=== PATIENT | female | born 1985 | race Two or more races ===

== ENCOUNTER 2017-06-09 15:52 | Emergency (ER) | payer SELFPAY ==
[2017-06-09 17:06] VITALS: BP 112/65; PULSE 86; TEMP 98; BMI 24.7
--- NOTE | 2017-06-09 17:12 | PDOC ---
Rapid Medical Evaluation Chief Complaint: Vaginal Bleeding Time Seen by Provider: 06/09/17 17:03 Medical Evaluation: Allergies Allergy/AdvReac Type Severity Reaction Status Date / Time No Known Allergies Allergy Verified 06/09/17 17:02 06/09/17 17:12 came for eval of spotting x 1 week. States is scant , no fevers. no abd pain. CBC, BHcG, Type and screen Waits ER eval. 06/09/17 17:14
[2017-06-09 17:51] LABS: BASO % 0.4 % (0-2.0); EOS % 0.8 % (0-4.5); HEMATOCRIT 35.1 % (32.4-45.2); HEMOGLOBIN 11.7 GM/dL (10.7-15.3); LYMPH % 22.8 % (8-40); MCHC 33.2 g/dl (32.0-36.0); MEAN CELL VOLUME 72.1 fl (80-96); MEAN PLT VOLUME 8.7 fl (7.5-11.1); MONO % 6.8 % (3.8-10.2); NEUT % 69.2 % (42.8-82.8); PLATELET COUNT 197 K/MM3 (134-434); RBC 4.87 M/mm3 (3.60-5.2); RDW 16.5 % (11.6-15.6); WHITE BLOOD COUNT 6.9 K/mm3 (4.0-10.0)
[2017-06-09] MEDS ORDERED: RHO(D) IMMUNE GLOBULIN 1,500 UNIT DISP.SYRIN IM ONE (20:52)
--- NOTE | 2017-06-09 21:21 | PDOC ---
History of Present Illness <Suzi Cruz La - Last Filed: 06/09/17 22:22> - General History Source: Patient Exam Limitations: No Limitations - History of Present Illness Initial Comments: 06/09/17 21:24 The patient is a 32 year old female who is , who is s/p 2/2 gestational diabetes, approximately 9 weeks by LMP who presents to the ED complaining of approximately 5 days of scant, continuous vaginal bleeding with associated nausea. The patient denies abdominal pain, vomiting, or diarrhea. She denies dysuria, frequency, or urgency. She denies fever or chills. She denies chest pain, lightheadedness or shortness of breath. OBGYN: Dr. Aguirre <Rebecca Albrecht - Last Filed: 06/10/17 00:50> - General Chief Complaint: Vaginal Bleeding Stated Complaint: SPOTTING (9 WKS ) Time Seen by Provider: 06/09/17 17:03 Past History - Past Medical History Asthma: No Cancer: No Cardiac Disorders: No COPD: No Diabetes: No HTN: No Seizures: No Thyroid Disease: No - Suicide/Smoking/Psychosocial Hx Smoking History: Never smoked Have you smoked in the past 12 months: No Information on smoking cessation initiated: No Hx Alcohol Use: No Drug/Substance Use Hx: No Substance Use Type: None Hx Substance Use Treatment: No <AnthonyIancorazon Tovar - Last Filed: 06/09/17 22:22> <Rebecca Albrecht - Last Filed: 06/10/17 00:50> - Past Medical History Allergies/Adverse Reactions: Allergies Allergy/AdvReac Type Severity Reaction Status Date / Time No Known Allergies Allergy Verified 06/09/17 17:02 Home Medications: Ambulatory Orders Acetaminophen [Tylenol .Regular Strength -] 650 mg PO Q3H PRN #0 tablet Vitamins (Sjr) - 1 tab PO DAILY tablet 06/06/15 Review of Systems - Review of Systems Able to Perform ROS?: Yes Comments:: 06/09/17 21:27 GENERAL/CONSTITUTIONAL: No fever or chills. No weakness. HEAD, EYES, EARS, NOSE AND THROAT: No change in vision. No ear pain or discharge. No sore throat. CARDIOVASCULAR: No chest pain or shortness of breath. RESPIRATORY: No cough, wheezing, or hemoptysis. GASTROINTESTINAL: No abdominal pain. No nausea, vomiting, diarrhea or constipation. GENITOURINARY: +Vaginal bleeding x 5 days. No dysuria, urgency, frequency. MUSCULOSKELETAL: No joint or muscle swelling or pain. No neck or back pain. SKIN: No rash NEUROLOGIC: No headache, vertigo, loss of consciousness, or change in strength/ sensation. ENDOCRINE: No increased thirst. No abnormal weight change. HEMATOLOGIC/LYMPHATIC: No anemia, easy bleeding, or history of blood clots. ALLERGIC/IMMUNOLOGIC: No hives or skin allergy. <Rebecca Albrecht - Last Filed: 06/10/17 00:50> *Physical Exam - Vital Signs Last Vital Signs Temp Pulse Resp BP Pulse Ox 98.0 F 86 18 112/65 100 06/09/17 17:02 06/09/17 17:02 06/09/17 17:02 06/09/17 17:02 06/09/17 17:02 <Suzi Cruz - Last Filed: 06/09/17 22:22> - Vital Signs Last Vital Signs Temp Pulse Resp BP Pulse Ox 98.0 F 86 18 112/65 100 06/09/17 17:02 06/09/17 17:02 06/09/17 17:02 06/09/17 17:02 06/09/17 17:02 - Physical Exam Comments: 06/09/17 21:28 GENERAL: Awake, alert, and fully oriented, in no acute distress HEAD: No signs of trauma EYES: PERRLA, EOMI, sclera anicteric, conjunctiva clear ENT: Auricles normal inspection, nares patent. Moist mucosa NECK: Normal ROM, supple, no JVD, or masses LUNGS: Breath sounds equal, clear to auscultation bilaterally. No wheezes, and no crackles HEART: Regular rate and rhythm, normal S1 and S2, no murmurs, rubs or gallops ABDOMEN: Soft, nontender, normoactive bowel sounds. No guarding, no rebound. No masses EXTREMITIES: Normal range of motion, no edema. No clubbing or cyanosis. No cords, erythema, or tenderness NEUROLOGICAL: Alert and oriented x 3. Moves all extremities. Face is symmetric. SKIN: Warm, Dry, normal turgor, no rashes or lesions noted. Pelvic exam deferred secondary to scant bleeding. <Rebecca Albrecht - Last Filed: 06/10/17 00:50> ED Treatment Course - LABORATORY CBC & Chemistry Diagram: 06/09/17 17:38 - ADDITIONAL ORDERS Additional order review: Laboratory Results 06/09/17 06/09/17 17:38 17:38 Beta HCG, Quant [id number] Blood Type O NEGATIVE Antibody Screen Negative 06/09/17 17:38 RBC 4.87 D MCV 72.1 L MCHC 33.2 RDW 16.5 H D MPV 8.7 Neutrophils % 69.2 Lymphocytes % 22.8 Monocytes % 6.8 Eosinophils % 0.8 D Basophils % 0.4 D - RADIOLOGY Radiology Studies Ordered: Category Date Time Status <14WKS US [US] Stat Ultrasound 06/09/17 20:50 Taken <Suzi Cruz - Last Filed: 06/09/17 22:22> - LABORATORY CBC & Chemistry Diagram: 06/09/17 17:38 - ADDITIONAL ORDERS Additional order review: Laboratory Results 06/09/17 06/09/17 17:38 17:38 Beta HCG, Quant [id number] Blood Type O NEGATIVE Antibody Screen Negative 06/09/17 17:38 RBC 4.87 D MCV 72.1 L MCHC 33.2 RDW 16.5 H D MPV 8.7 Neutrophils % 69.2 Lymphocytes % 22.8 Monocytes % 6.8 Eosinophils % 0.8 D Basophils % 0.4 D <Rebecca Albrecht - Last Filed: 06/10/17 00:50> Medical Decision Making - Medical Decision Making 06/09/17 21:33 OB US, read and reviewed by Dr. Aguilar. Impression: Single, live intrauterine of 9 weeks 6 days gestational age. <Rebecca Albrecht - Last Filed: 06/10/17 00:50> *DC/Admit/Observation/Transfer <Suzi Cruz - Last Filed: 06/09/17 22:22> - Attestations Scribe Attestion: 06/09/17 21:30 Documentation prepared by Rebecca Albrecht, acting as medical anthropologist for Suzi Cruz MD. <Rebecca Albrecht - Last Filed: 06/10/17 00:50> Diagnosis at time of Disposition: Threatened - Discharge Dispostion Disposition: HOME Condition at time of disposition: Stable - Patient Instructions Printed Discharge Instructions: DI for Threatened Additional Instructions: please follow up with your restaurant attendant and take your vitamins
== END 2017-06-09 22:38 | disposition home or self-care (01) ==
LOC: JER 15:52
PROC: 3E0234Z Introduction of Serum, Toxoid and Vaccine into Muscle, Percutaneous Approach (ICD-10-PCS; principal; 2017-06-09)
DX: O26.891 Other specified pregnancy related conditions, first trimester (principal); O20.0 Threatened abortion; Z3A.09 9 weeks gestation of pregnancy; O36.0910 Maternal care for other rhesus isoimmunization, first trimester, not applicable or unspecified
CPT/HCPCS: 36415; 76801-TC; 84702; 85025; 86850; 86900; 86901; 86999; 99282-25; J1561

== ENCOUNTER 2018-01-07 11:17 | Inpatient (IN) | payer OTHER ==
[2018-01-07] MEDS: DEXTROSE 5%-LACTATED RINGERS 1,000 ML IV SCH (23:50)
[2018-01-08 00:37] LABS: BASO % 0.1 % (0-2.0); EOS % 0.1 % (0-4.5); HEMATOCRIT 34.1 % (32.4-45.2); HEMOGLOBIN 10.6 GM/dL (10.7-15.3); LYMPH % 21.3 % (8-40); MCH 21.2 pg (25.7-33.7); MCHC 31.2 g/dl (32.0-36.0); MEAN CELL VOLUME 67.9 fl (80-96); MONO % 5.3 % (3.8-10.2); NEUT % 73.2 % (42.8-82.8); RBC 5.02 M/mm3 (3.60-5.2); RDW 20.7 % (11.6-15.6); WHITE BLOOD COUNT 6.7 K/mm3 (4.0-10.0)
[2018-01-08 00:42] VITALS: BMI 30.2
[2018-01-08 00:49] LABS: INR 0.87 (0.83-1.09); PROTHROMBIN TIME (PATIENT) 10.3 SEC (9.7-13.0)
[2018-01-08 00:51] LABS: ACTIVATED PTT 29.2 SECONDS (25.2-36.5)
[2018-01-08 00:55] LABS: ANION GAP 10 MMOL/L (8-16); BLOOD UREA NITROGEN 15 mg/dL (7-18); CALCIUM 8.7 mg/dL (8.5-10.1); CHLORIDE 105 mmol/L (98-107); CO2 23 mmol/L (21-32); CREATININE 0.7 mg/dL (0.55-1.3); GLUCOSE,RANDOM 110 mg/dL (74-106); POTASSIUM 4.2 mmol/L (3.5-5.1); SODIUM 138 mmol/L (136-145)
--- NOTE | 2018-01-08 01:01 | PN ---
Progress Note, Labor Vaginal Exam #1 Labor Exam Date: 01/08/18 Labor Exam Time: 01:00 Heart Rate (range): Cat 1 Dilatation: 6 Effacement (%): 80 Amniotic Membrane Status: Ruptured Presentation: Vertex/Position Station: -3 (Cat 1 tracing AROM, clears Discussed epidural for pain Anticipate . Carmelita Saini MD)
[2018-01-08] MEDS ORDERED: OXYTOCIN 20 UNITS in 0.9% NS 20 UNIT/1,000 ML INFUS.BAG IV ONE (01:13)
[2018-01-08] MEDS ORDERED: LIDOCAINE HCL 1% PRESERVATIVE FREE - 30ML VIAL ONE (01:13)
[2018-01-08 01:45] LABS: MEAN PLT VOLUME 9.6 fl (7.5-11.1)
[2018-01-08 01:46] LABS: PLATELET COUNT 133 K/MM3 (134-434)
[2018-01-08] MEDS ORDERED: CITRIC ACID/SODIUM CITRATE 30 ML UNIT-DOSE CUP PO ONE (03:30)
[2018-01-08] MEDS: ELECTROLYTE-148 SOLN 1,000 ML IV SCH (05:50)
[2018-01-08] MEDS: OXYTOCIN 20 UNITS in 0.9% NS 20 UNIT/1,000 ML INFUS.BAG IV SCH (06:10)
--- NOTE | 2018-01-08 06:30 | PN ---
Delivery - Delivery Vaginal Delivery: Spontaneous Type of Anesthesia: None Episiotomy/Laceration: None EBL (cc): 400 Delivery, Single - Stages of Labor Date of Delivery: 01/08/18 Time of Delivery: 06:07 Date Placenta Delivered: 01/08/18 Time Placenta Delivered: 06:10 Placenta: Yes: Spontaneous - Condition of Infant Gender: Male Position: Left, OA - Feeding Plan Initial Plan: Exclusive throughout hospitalization Remarks - Remarks Remarks: of VFMI from FEDE over intact perineum. 40wk gestation. No anesthesia. Spontaneous delivery of anterior shoulder. Infant placed on maternal abdomen. Cord clamped and cut. Infant handed off. Spontaneous delivery of intact placenta with 3VC. Fundus firm, but several large gushes of fluid with fundal massage. Pitocin running. 0.2mg of Methergine IM given. Superficial perineal abrasion, not bleeding or repaired. Weight pending. Apgars 9/9. Mother and baby doing well.
[2018-01-08] MEDS ORDERED: BENZOCAINE 20% 57 GM BOTTLE TP PRN (06:33)
[2018-01-08] MEDS ORDERED: METHYLERGONOVINE MALEATE 0.2 MG/1 ML AMP IM PRN (06:33)
[2018-01-08] MEDS ORDERED: BENZOCAINE 28 GM HEMORRHOIDAL OINTMENT TP PRN (06:33)
[2018-01-08] MEDS ORDERED: WITCH HAZEL 50% (TUCKS) 40 PAD/JAR PAD TP PRN (06:33)
--- NOTE | 2018-01-08 06:33 | HP ---
Past Medical History - Admission Chief Complaint: Uterine contractions History of Present Illness: 32yo @ 39.6wks here with uterine contractions. No VB/LOF. +FM Preg c/b grand multiparity, h/o C/S x 1 followed by x 1 - Past Medical History Gastrointestinal: Yes: Constipation ...: 8 ...Para: 5 ...Term: 5 ...: 0 ...Spon : 2 ...Induced : 0 ...Multiple Gestation: 0 ...LMP: 04/03/17 ... Weeks Gestation by Dates: 39.6 ...EDC by Dates: 01/08/18 ...EDC by Sono: 01/08/18 Heme/Onc: Yes: Anemia (rx po iron & pnv) Infectious Disease: Yes: STD's (h/o non HPV pos) Additional Medical History: pt is Jehov's witness - Past Surgical History Past Surgical History: Yes: Hx Myomectomy: No Hx Transabdominal Cerclage: No - Smoking History Smoking history: Never smoked Have you smoked in the past 12 months: No - Alcohol/Substance Use Hx Alcohol Use: No History of Substance Use: reports: None - Social History History of Recent Travel: No Home Medications - Allergies Allergies/Adverse Reactions: Allergies Allergy/AdvReac Type Severity Reaction Status Date / Time No Known Allergies Allergy Verified 01/08/18 00:22 - Home Medications Home Medications: Ambulatory Orders RX: Vitamins (Sjr) - 1 tab PO DAILY tablet 06/06/15 Ferrous Sulfate [Iron] 325 mg PO DAILY 01/08/18 Review of Systems - Review of Systems Cardiovascular: denies: No Symptoms, Chest Pain, Edema, Palpitations, Shortness of Breath, Other Respiratory: denies: No Symptoms, Cough, Exercise Intolerance, Hemoptysis, Orthopnea, PND, Snoring, SOB, SOB on Exertion, Wheezing, Other Gastrointestinal: denies: No Symptoms, Abdominal Pain, Bloating, Constipation, Diarrhea, Dysphagia, Indigestion, Melena, Nausea, Rectal Bleeding, Vomiting, Vomiting Blood, Other Physical Exam - Maternity Vital Signs: Vital Signs Temperature 98.4 F 01/08/18 05:00 Pulse Rate 79 01/08/18 05:00 Respiratory Rate 19 01/08/18 05:00 Blood Pressure 138/76 01/08/18 05:00 O2 Sat by Pulse Oximetry (%) - Abdominal Exam/OB Number of Fetuses: Single Presentation: Vertex Contractions: Yes Regularity: Regular Intensity: Moderate Monitor Mode: External Category: I Accelerations: Uniform Decelerations: None - Vaginal Exam/OB Dilatation (cm): 4 Effacement (%): 100 Amniotic Membrane Status: Intact Presentation: Vertex/Position Station: -2 - Physical Exam Edema: No - Labs Lab Results: CBC, BMP 01/08/18 00:05 01/08/18 00:05 Assessment/Plan Admit to L&D NPO, IVFs GBS neg Cat 1 tracing Counseled previously regarding risk of TOLAC including maternal/ morbidity and mortality. Consents signed. Anticipate Carmelita Saini MD
[2018-01-08] MEDS: FERROUS SO4 325 MG TABLET (FP) PO SCH ×3 (08:00→17:11)
[2018-01-08] MEDS: PRENATAL VITAMINS W/ FOLIC ACID TABLET (FP) PO SCH (10:01)
[2018-01-08] MEDS: IBUPROFEN 600 MG TABLET (FP) PO PRN ×3 (10:07→21:19)
[2018-01-08] MEDS: ACETAMINOPHEN 325 MG TABLET (FP) PO PRN ×3 (10:08→21:20)
[2018-01-09] MEDS: ACETAMINOPHEN 325 MG TABLET (FP) PO PRN (06:30)
[2018-01-09] MEDS: IBUPROFEN 600 MG TABLET (FP) PO PRN (06:30)
[2018-01-09 07:54] LABS: BASO % 0.2 % (0-2.0); EOS % 0.3 % (0-4.5); HEMOGLOBIN 9.8 GM/dL (10.7-15.3); MCHC 30.5 g/dl (32.0-36.0); MEAN CELL VOLUME 68.7 fl (80-96); MEAN PLT VOLUME 10.3 fl (7.5-11.1); MONO % 5.8 % (3.8-10.2); NEUT % 59.7 % (42.8-82.8); PLATELET COUNT 131 K/MM3 (134-434); RBC 4.65 M/mm3 (3.60-5.2); RDW 20.6 % (11.6-15.6); WHITE BLOOD COUNT 9.6 K/mm3 (4.0-10.0)
[2018-01-09] MEDS: FERROUS SO4 325 MG TABLET (FP) PO SCH ×3 (08:00→17:03)
[2018-01-09] MEDS: PRENATAL VITAMINS W/ FOLIC ACID TABLET (FP) PO SCH (09:08)
--- NOTE | 2018-01-09 09:08 | PN ---
Progress Note (short form) - Note Progress Note: ppd 1 s/p , no c/o , no excess vaginal bleeding CBC, BMP 01/09/18 07:00 01/08/18 00:05 Last Vital Signs Temp Pulse Resp BP Pulse Ox 97.7 F 80 18 116/71 100 01/09/18 08:18 01/09/18 08:18 01/09/18 08:18 01/09/18 08:18 01/08/18 07:30 abdomen soft, non tennnder , uterus firm lochia mild no calf tenderness plan ambulate, plan for d/c home in am
[2018-01-09] MEDS ORDERED: DIPHTH,PERTUSS(ACELL),TET 0.5 ML DISP.SYRIN IM ONE (10:00)
[2018-01-09] MEDS: DEXTROSE 5%-LACTATED RINGERS 1,000 ML IV SCH (11:43)
[2018-01-09] MEDS: ELECTROLYTE-148 SOLN 1,000 ML IV SCH (11:43)
[2018-01-09] MEDS: OXYTOCIN 20 UNITS in 0.9% NS 20 UNIT/1,000 ML INFUS.BAG IV SCH (11:43)
[2018-01-09] MEDS ORDERED: SENNOSIDES/DOCUSATE COMBO (SENNA PLUS) TABLET (UD) PO PRN (22:00)
[2018-01-10] MEDS: ACETAMINOPHEN 325 MG TABLET (FP) PO PRN (03:16)
[2018-01-10] MEDS: IBUPROFEN 600 MG TABLET (FP) PO PRN (03:17)
--- NOTE | 2018-01-10 08:37 | DS ---
Physical Exam-[employer] Vital Signs: Vital Signs Temperature 98.3 F 01/09/18 21:05 Pulse Rate 80 01/09/18 21:05 Respiratory Rate 20 01/09/18 21:05 Blood Pressure 118/64 01/09/18 21:05 O2 Sat by Pulse Oximetry (%) 100 01/08/18 07:30 Constitutional: Yes: Well Nourished Eyes: Yes: Conjunctiva Clear HENT: Yes: Atraumatic Neck: Yes: Supple Cardiovascular: Yes: Regular Rate and Rhythm Respiratory: Yes: Regular Gastrointestinal: Yes: Normal Bowel Sounds ...Rectal Exam: Yes: WNL Renal/: Yes: WNL Pelvis: Yes: WNL External Genitalia: Yes: Normal Vaginal Exam: Yes: Normal Cervix: Yes: Normal Uterus: Yes: Firm ....Post : Yes: Uterus firm, Moderate lochia serosa Neurological: Yes: Alert, Oriented ...Motor Strength: WNL Psychiatric: Yes: Alert, Oriented Labs: CBC, BMP 01/09/18 07:00 01/08/18 00:05 Delivery - Delivery Vaginal Delivery: Spontaneous Type of Anesthesia: None Episiotomy/Laceration: None EBL (cc): 400 Delivery, Single - Stages of Labor Date 1st Stage Initiatied: 01/07/18 Time 1st Stage Initiated: 16:00 Date 2nd Stage Initiated: 01/08/18 Time 2nd Stage Initiated: 06:05 Date of Delivery: 01/08/18 Time of Delivery: 06:07 Time Placenta Delivered: 06:10 Placenta: Yes: Spontaneous - Condition of Infant Dental Technology Advisor/Youth Agent Present: No Gender: Male Weight: 8 lb 10 oz Position: Left, OA Total Hours ROM (Hrs/Mins): 5hrs 15min - 1 Minute Total Score: 9 5 Minutes Total Score: 9 - [place] Feeding Plan Initial Plan: Exclusive throughout hospitalization Discharge Summary Reason For Visit: LABOR Procedures: Principal: Status post vaginal delivery Hospital Course: Routine care Condition: Good - Instructions Diet, Activity, Other Instructions: Regular diet No douching, no sexual intercourse x 6 weeks F/U in clinic in 6 weeks Disposition: HOME - Home Medications Comprehensive Discharge Medication List: Ambulatory Orders Vitamins (Sjr) - 1 tab PO DAILY tablet 06/06/15 Ferrous Sulfate [Iron] 325 mg PO DAILY 01/08/18
[2018-01-10] MEDS: FERROUS SO4 325 MG TABLET (FP) PO SCH ×2 (10:50→13:45)
[2018-01-10] MEDS: PRENATAL VITAMINS W/ FOLIC ACID TABLET (FP) PO SCH (10:50)
[2018-01-10 13:46] VITALS: BP 112/63; PULSE 106; TEMP 98.6
== END 2018-01-10 13:10 | disposition home or self-care (01) | DRG 560 ==
LOC: JLDR 11:17 → UNDOADMIN 11:17 → JLDR 23:17 → J3W 01-08 08:15
PROVIDERS: ADMIT Obstetrics & Gynecology; ATTEND Obstetrics & Gynecology
PROC: 10E0XZZ Delivery of Products of Conception, External Approach (ICD-10-PCS; principal; 2018-01-08)
DX: O34.211 Maternal care for low transverse scar from previous cesarean delivery (principal); N85.8 Other specified noninflammatory disorders of uterus; Z3A.39 39 weeks gestation of pregnancy; Z37.0 Single live birth
CPT/HCPCS: 36415; 59409; 80048; 85025; 85461; 85610; 85730; 86593; 86850; 86900; 86901; 86999; 90686; 90715; G0008